=== PATIENT | female | born 1975 | race Caucasian/White ===

== ENCOUNTER 2022-07-30 13:35 | Outpatient (CLI) | payer BC, SELFPAY ==
[2022-07-30 22:14] LABS: Albumin* 4.3 g/dL (3.3-5.0); Chloride* 106 mmol/L (96-114); Sodium* 139 mmol/L (135-149)
[2022-07-30 22:15] LABS: Potassium* 4.2 mmol/L (3.6-5.1)
[2022-07-30 22:17] LABS: Creatinine* 0.8 mg/dL (0.5-1.5); Estimated Glomerular Filt Rate 92 ml/min
[2022-07-30 22:18] LABS: Alanine Aminotransferase* 18 U/L (4-35); Alkaline Phosphatase* 54 U/L (40-150); Aspartate Amino Transferase* 22 U/L (12-35); Bilirubin Total* 0.6 mg/dL (0.1-1.5); Blood Urea Nitrogen* 11 mg/dL (5-24); Calcium* 9.9 mg/dL (8.4-10.6); Carbon Dioxide* 26 mmol/L (20-32); Glucose* 98 mg/dL (60-115)
[2022-07-30 22:23] LABS: C Reactive Protein* < 0.5 mg/dL (0.5-1.0)
[2022-08-01 22:06] LABS: Rheumatoid Factor <10 IU/mL (0-14)
[2022-08-02 09:13] LABS: Anti-Nuclear Ab(ANA)IgG ELISA None Detected (None Detected)
[2022-08-03 00:02] LABS: HLA-B27 Negative (Negative)
== END 2022-07-30 13:36 | disposition home or self-care (01) ==
PROVIDERS: PCP Family Medicine; Visit Provider Family Medicine
DX: M35.3 Polymyalgia rheumatica (principal); M25.571 Pain in right ankle and joints of right foot
CPT/HCPCS: 80053; 86039; 86140; 86200; 86431; 86812

== ENCOUNTER 2022-08-07 13:32 | Outpatient (CLI) | payer BC, SELFPAY ==
--- NOTE | 2022-08-07 13:45 | MR_ITS ---
[facility] [address] [facility] [address] Phone:?[phone] Fax:?[phone] Referring Physician Information: Kary Fox D.O. [address] [facility] [address] Phone:?[phone] Fax:?[phone] Patient:Emeka Rosario D.O.B:?1975 Sex:?Female Phone:?[phone] [facility] MRN:?[id number] Exam Date:?08/07/2022 ? EXAM: MRI OF THE RIGHT ANKLE WITHOUT CONTRAST CLINICAL INFORMATION: Female, 47 years old, with right foot and ankle pain for 5+ month. INDICATION: Evaluate for ligament injury. PRIOR SURGERY: None reported. PLAIN FILMS: Ankle radiograph dated 07/30/2022. COMPARISONS: No prior MRIs available. TECHNICAL INFORMATION: Using a 1.5T MR scanner and a localizing surface coil: sagittals: PD, T2, STIR coronals: PD, T2 axials: PD, T2 SEDATION: None. CONTRAST: None. FINDINGS: Osseous structures: Mild edema-like signal is present in the medial one third of the navicular bone, without fracture (sagittal STIR series 6 images 13-15). The osseous structures are otherwise unremarkable. No stress/occult fracture. Os trigonum: No os trigonum or abnormally prominent Stieda's process. Tarsal coalition: No calcaneonavicular, talocalcaneal or cubonavicular coalition. Tibiotalar joint: Effusion: Small tibiotalar joint effusion. Ganglion cyst: None. Osteochondral surfaces: Mild generalized thinning of the articular cartilage throughout the tibiotalar joint with a 4 x 2 mm near full-thickness chondral defect medially (coronal T2 series 10 image 16 and sagittal STIR series 6 images 14 & 15). Loose bodies: No demonstrable loose bodies. Subtalar joint: Effusion: Mild subtalar joint effusion. Articular cartilage: No osteochondral abnormality. Tarsal joints: Talonavicular: Unremarkable. Calcaneocuboid: Unremarkable. Naviculocuneiform: Unremarkable. Tarsometatarsal: Unremarkable. Ligaments: Syndesmotic ligaments:?The anterior and posterior inferior tibiofibular syndesmotic ligaments are normal. Lateral ligaments:?Abnormal intrasubstance signal and [id number] tearing is present throughout the ATFL and calcaneofibular ligament (axial PD series 4 images 15-17 and coronal PD series 9 images 21-24). The posterior talofibular ligament is unremarkable. Deltoid ligament:?The visualized components of the superficial and deep deltoid ligament, specifically the tibiospring and posterior tibiotalar ligaments, are intact. Calcaneonavicular spring ligament:?The superomedial component of the calcaneonavicular spring ligament is grossly intact. Bifurcate and calcaneocuboid ligaments:?Intact lateral calcaneonavicular and medial calcaneocuboid ligaments. The dorsolateral calcaneocuboid ligament is intact. Tendons: Peroneal:?The peroneal tendons are appropriately situated within the retromalleolar groove and the superior peroneal retinaculum is intact. Mild peroneus brevis tendinopathy and fraying, with mild tenosynovitis (axial T2 series 5 images 17-24). Peroneus longus is unremarkable. Flexor tendons:?Mild-moderate posterior tibialis insertional tendinopathy, without tear (axial PD series 4 images 17-20). Flexor hallucis longus and flexor digitorum longus are intact, without tendinopathy or tear. No flexor tenosynovitis. Extensor tendons:?The anterior tibialis, extensor digitorum longus, and extensor hallucis longus tendons are intact. No significant tendinopathy and without tenosynovitis, tendon split or tendon disruption. Achilles:?Intact, without tendinopathy or tear. No retrocalcaneal or retro- Achilles bursitis. Sinus tarsi:?The sinus tarsi signal is normal. Plantar aponeurosis: There is no abnormal thickening of, abnormal intrasubstance signal involving, or perifascial edema about the plantar aponeurosis. Specifically, the plantar fascia origin appears normal in signal intensity and morphology. Plantar musculature:?The intrinsic foot musculature is normal in bulk and signal intensity without evidence of denervation atrophy. Neurovascular structures and tarsal tunnel: The posterior tibial neurovascular structures appear unremarkable coursing past the ankle and through the tarsal tunnel. IMPRESSION: 1. Marked sprain and [id number] tearing of the anterior talofibular and calcaneofibular ligaments. 2. Mild-moderate posterior tibialis tendinopathy with reactive osseous changes versus contusion of the medial one third of the navicular bone. No navicular fracture identified. 3. Mild peroneus brevis tendinopathy and tenosynovitis, without split/tear. 4. Mild chondromalacia of the tibiotalar joint with a 4 x 2 mm near full- thickness chondral defect along the medial aspect of the tibial plafond and mild joint effusion. 5. Mild subtalar joint effusion. No osteochondral abnormality. 6. No discrete fracture. BC Electronically signed on 08/08/2022 7:43:00 AM by Chris Blackmon M.D.
== END 2022-08-07 13:33 | disposition home or self-care (01) ==
LOC: MRI 13:33
PROVIDERS: PCP Family Medicine; Visit Provider Family Medicine
DX: M25.571 Pain in right ankle and joints of right foot (principal); S93.491A Sprain of other ligament of right ankle, initial encounter; M94.271 Chondromalacia, right ankle and joints of right foot; M25.471 Effusion, right ankle
CPT/HCPCS: 73721

== ENCOUNTER 2023-04-05 08:15 | Outpatient (REF) | payer BC, SELFPAY | END 2023-04-05 08:16 | disposition home or self-care (01) | LOC: NFLDREF 08:15 | PROVIDERS: PCP Family Medicine; Referring Provider Family Medicine; Visit Provider Family Medicine | DX: Z13.6 Encounter for screening for cardiovascular disorders (principal); Z82.49 Family history of ischemic heart disease and other diseases of the circulatory system | CPT/HCPCS: 80061; 83695 ==

== ENCOUNTER 2023-07-15 08:30 | Outpatient (CLI) | payer BC, SELFPAY | END 2023-07-15 08:31 | disposition home or self-care (01) | LOC: NFLDREF 07-16 07:02 | PROVIDERS: PCP Family Medicine; Referring Provider Family Medicine; Visit Provider Family Medicine | DX: Z02.0 Encounter for examination for admission to educational institution (principal) | CPT/HCPCS: 86706; 86787 ==

== ENCOUNTER 2023-08-28 08:11 | Outpatient (CLI) | payer BC, SELFPAY | END 2023-08-28 08:12 | disposition home or self-care (01) | LOC: NFLDREF 09-04 12:53 | PROVIDERS: PCP Family Medicine; Referring Provider Family Medicine; Visit Provider Physician Assistant Medical | DX: Z01.84 Encounter for antibody response examination (principal); Z11.1 Encounter for screening for respiratory tuberculosis | CPT/HCPCS: 86480; 86735; 86762; 86765 ==

== ENCOUNTER 2025-02-16 07:49 | Outpatient (CLI) | payer BC, SELFPAY | END 2025-02-16 07:50 | disposition home or self-care (01) | PROVIDERS: Visit Provider Physician Assistant Medical | DX: Z00.00 Encounter for general adult medical examination without abnormal findings (principal); K59.09 Other constipation; Z13.6 Encounter for screening for cardiovascular disorders | CPT/HCPCS: 80053; 80061; 84443 ==

== ENCOUNTER 2025-06-09 13:03 | Outpatient (CLI) | payer BC, SELFPAY ==
--- NOTE | 2025-06-09 13:20 | CRLHL7_ITS ---
For Patients: As a result of the Cures Act, medical imaging exams and procedure reports are released immediately into your electronic medical record. You may view this report before your referring provider. If you have questions, please contact your health care provider. BILATERAL DIGITAL SCREENING MAMMOGRAM WITH COMPUTER-AIDED DETECTION AND TOMOSYNTHESIS CLINICAL HISTORY: Routine screening exam. COMPARISON: None. Baseline. TECHNIQUE: Digital mammogram in CC and MLO projections including computer-aided detection (CAD). Tomosynthesis was used in this interpretation. BREAST COMPOSITION: The breasts are extremely dense, which lowers the sensitivity of mammography. FINDINGS: RIGHT Breast: No suspicious findings. LEFT Breast: Focal asymmetry lateral LEFT breast. IMPRESSION: LEFT breast asymmetry/mass. RECOMMENDATIONS: Additional mammographic views of the LEFT breast including 3D spot compression CC/MLO and 3D true lateral. LEFT breast ultrasound may also be required. The [facility] will contact the patient. A lay language report of this examination will be provided to the patient. BI-RADS Category 0: Incomplete: Need Additional Imaging Evaluation Dictated by Natanael Conte MD @ 06/10/2025 9:46:12 AM /sp SP/Dictated by: Natanael Conte MD @ 06/10/2025 9:46:00 AM (Electronically Signed)
== END 2025-06-09 13:04 | disposition home or self-care (01) ==
LOC: MAMMO 13:04
PROVIDERS: PCP Physician Assistant Medical; Visit Provider Physician Assistant Medical
DX: Z12.31 Encounter for screening mammogram for malignant neoplasm of breast (principal); N63.20 Unspecified lump in the left breast, unspecified quadrant; R92.343 Mammographic extreme density, bilateral breasts
CPT/HCPCS: 77063; 77067